=== PATIENT | female | born 1940 | race Caucasian/White ===

== ENCOUNTER 2017-05-16 01:57 | Inpatient (IN) ==
[2017-05-16] MEDS ORDERED: ASPIRIN 325 MG TABLET PO STA (02:53)
[2017-05-16] MEDS ORDERED: MORPHINE 2 MG/1 ML SYRINGE IV STA (02:53)
[2017-05-16] MEDS ORDERED: ONDANSETRON 4 MG/2 ML VIAL IV STA (02:53)
[2017-05-16] MEDS ORDERED: ALUM/MAG/SIMETH/LIDO VISC 1:1 30 ML BOTTLE PO STA (02:53)
[2017-05-16 03:27] LABS: Basophils % 0.5 % (0.0-0.8); Eosinophils # 0.2 10*3/uL (0.0-0.87); Hematocrit 39.6 VOL% (35.7-47.0); Hemoglobin 14.1 GM/DL (12.0-16.0); Immature Granulocytes % 0.2 %; Immature Granulocytes Absolute 0.01 #; Lymphocytes # 2.2 10*3/uL (1.4-4.0); Lymphocytes % 38.4 % (21.3-54.2); Mean Corpuscular HGB Conc 35.6 GM/DL (32-36); Mean Corpuscular Hemoglobin 33 PG (27-34); Mean Corpuscular Volume 92.5 FL (87-102); Mean Platelet Volume 9.8 FL (9.6-12.0); Monocytes # 0.6 10*3/uL (0.11-0.8); Monocytes % 10.4 % (1.7-12.7); Neutrophils # 2.7 10*3/uL (1.4-7.4); Neutrophils % 47.5 % (38.7-73.9); Platelet Count 135 T/CUMM (130-400); Red Blood Count 4.28 MC/CUMM (3.8-5.5); Red Cell Distribution Width 11.7 % (9.3-17.3); White Blood Count 5.8 T/CUMM (4-12)
[2017-05-16 03:48] LABS: Albumin 3.5 G/DL (3.4-5.0); Bilirubin,Total 0.5 MG/DL (0.2-1.0); Calcium 9.2 MG/DL (8.5-10.1); Total Protein 6.9 G/DL (6.4-8.3)
[2017-05-16] MEDS ORDERED: ONDANSETRON 4 MG/2 ML VIAL ONE (03:48)
[2017-05-16 03:49] LABS: Magnesium 2.2 MG/DL (1.8-2.4); Potassium 3.4 MMOL/L (3.5-5.1)
[2017-05-16] MEDS ORDERED: MORPHINE 2 MG/1 ML SYRINGE ONE (03:49)
[2017-05-16] MEDS ORDERED: ASPIRIN 325 MG TABLET ONE (03:49)
[2017-05-16] MEDS ORDERED: ALUM/MAG/SIMETH/LIDO VISC 1:1 30 ML BOTTLE PO ONE (03:49)
[2017-05-16] MEDS ORDERED: POTASSIUM CHLORIDE 20 MEQ TABLET PO STA (03:51)
[2017-05-16 03:56] LABS: INR 1.1; PT Patient Result 11.6 SECS
[2017-05-16] MEDS ORDERED: POTASSIUM CHLORIDE 20 MEQ TABLET PO ONE (04:23)
[2017-05-16] MEDS ORDERED: DILTIAZEM 30 MG TABLET PO PRN (05:35)
[2017-05-16] MEDS ORDERED: CLOPIDOGREL 75 MG TABLET PO STA (05:38)
[2017-05-16] MEDS ORDERED: CLOPIDOGREL 75 MG TABLET ONE (05:42)
[2017-05-16 06:34] LABS: Risk Ratio 3.7; VLDL CHOLESTEROL 41.2 MG/DL
[2017-05-16] MEDS ORDERED: LORATADINE 10 MG TABLET PO PRN (07:13)
[2017-05-16] MEDS ORDERED: ONDANSETRON ODT 4 MG TABLET PO PRN (10:38)
[2017-05-16] MEDS ORDERED: BISMUTH SUBSALICYLATE 30 ML/524 MG 240 ML/BOTTLE PO PRN (10:39)
[2017-05-16] MEDS: OMEGA 3 ACID ETHYL ESTERS 1 GM CAPSULE PO SCH (20:59)
[2017-05-16] MEDS: ATENOLOL 50 MG TABLET PO SCH (20:59)
[2017-05-16] MEDS ORDERED: ATORVASTATIN 20 MG TABLET PO SCH (21:00)
[2017-05-17 04:54] LABS: Basophils % 0.5 % (0.0-0.8); Eosinophils # 0.2 10*3/uL (0.0-0.87); Eosinophils % 2.5 % (0.00-10.9); Hematocrit 38.2 VOL% (35.7-47.0); Hemoglobin 13.5 GM/DL (12.0-16.0); Immature Granulocytes % 0.2 %; Immature Granulocytes Absolute 0.01 #; Lymphocytes # 2.5 10*3/uL (1.4-4.0); Lymphocytes % 41.5 % (21.3-54.2); Mean Corpuscular HGB Conc 35.3 GM/DL (32-36); Mean Corpuscular Hemoglobin 33 PG (27-34); Mean Corpuscular Volume 93.6 FL (87-102); Mean Platelet Volume 10.2 FL (9.6-12.0); Monocytes # 0.7 10*3/uL (0.11-0.8); Neutrophils # 2.6 10*3/uL (1.4-7.4); Neutrophils % 43.3 % (38.7-73.9); Platelet Count 141 T/CUMM (130-400); Red Blood Count 4.08 MC/CUMM (3.8-5.5); Red Cell Distribution Width 11.6 % (9.3-17.3); White Blood Count 5.9 T/CUMM (4-12)
[2017-05-17 05:28] LABS: Calcium 8.8 MG/DL (8.5-10.1); Magnesium 2.3 MG/DL (1.8-2.4); Potassium 4.6 MMOL/L (3.5-5.1)
[2017-05-17] MEDS ORDERED: PANTOPRAZOLE 40 MG TABLET PO SCH (09:00)
[2017-05-17] MEDS ORDERED: MULTIVITAMIN (CENTRUM) TABLET PO SCH (09:00)
[2017-05-17] MEDS ORDERED: CHOLECALCIFEROL 1,000 UNIT TABLET PO SCH (09:00)
[2017-05-17] MEDS ORDERED: ASPIRIN EC 81 MG TABLET PO SCH (09:00)
[2017-05-17] MEDS ORDERED: MULTIVITAMIN (OCUVITE) TABLET PO SCH (09:00)
[2017-05-17] MEDS ORDERED: MAGNESIUM CHLORIDE 64 MG TABLET PO SCH (09:00)
[2017-05-17] MEDS: OMEGA 3 ACID ETHYL ESTERS 1 GM CAPSULE PO SCH (09:15)
[2017-05-17] MEDS: ATENOLOL 50 MG TABLET PO SCH (09:15)
[2017-05-17 09:39] LABS: Apearance,Urine CLEAR (Clear); Bacteria,Urine Occasional /HPF (Few); Bilirubin,Urine Negative (Negative); Blood, Urine Negative (Negative); Glucose,Urine (UA) Negative (Negative); Ketones,Urine Negative (Negative); Mucus,Urine Occasional /LPF (Occasional); Nitrite,Urine Negative (Negative); Protein,Urine Negative; RBC,Urine 4 /HPF (0-4); Squamous Epithelial Cell,Urine Occasional /HPF (0-10); Urine Color Yellow (Yellow); Urine Specific Gravity 1.017 (1.001-1.035); Urine Urobilinogen < 2.0 EU/DL (0.2-1.0); WBC,Urine 5 /HPF (0-6)
[2017-05-17 12:17] VITALS: BP 137/80
== END 2017-05-17 13:20 | disposition home or self-care (01) | DRG 66 ==
LOC: N.ED 01:57 → N.EDINP 05:23 → SUATTDRO 05:23 → N.EDINP 10:37 → N.TELEN 10:43
PROVIDERS: ADMIT Internal Medicine; ATTEND Internal Medicine